=== PATIENT | female | born 1980 | race Two or more races ===

== ENCOUNTER 2018-09-04 14:35 | Emergency (ER) | payer OTHER ==
[2018-09-04 14:43] VITALS: BP 153/80; PULSE 85; TEMP 98.5; BMI 28.2
[2018-09-04] MEDS ORDERED: SODIUM CHLORIDE 0.9% 500 ML INFUS.BAG IV ONE (15:27)
--- NOTE | 2018-09-04 15:32 | PDOC ---
History of Present Illness - General Chief Complaint: Diarrhea Stated Complaint: DIARRHEA Time Seen by Provider: 09/04/18 15:15 - History of Present Illness Initial Comments: Kiara Simpson is a 38yo woman with a PMH of IBS and borderline HTN (not on meds ) who presents with diarrhea for the past 3 weeks, starting around Thanks. She reports that since she has had 1-2 loose bowel movements every times she eats anything, at least 6-7 times per day total. She went to see her PMD after a few days but was initially told that she had a virus. However, she states that for the first day or two she had a few episodes of vomiting that have since resolved. She has had no vomiting since the first week of her symptoms. Ms Simpson denies any fevers, chills, abdominal pain, current nausea/vomiting, recent travel, change in diet, recent antibiotic use, or sick contacts. Since the diarrhea started, she has been avoiding eating and has lost 10lb. She has never had similar symptoms in the past. She tried an OTC "natural probiotic" given to her by a coworker, though she stated that it made her feel as though she was unable to have a bowel movement followed by explosive BMs. She says that she talked with Dr Mendieta and was told to come to the ED so that he could see her here. Past History - Past Medical History Allergies/Adverse Reactions: Allergies Allergy/AdvReac Type Severity Reaction Status Date / Time fluorescein Allergy Verified 09/04/18 14:39 iodine Allergy Verified 09/04/18 14:39 shellfish derived Allergy Verified 09/04/18 14:39 tree nut Allergy Verified 09/04/18 14:39 COPD: No GI Disorders: Yes (IBS) - Surgical History Cholecystectomy: Yes - Immunization History Immunization Up to Date: Yes - Suicide/Smoking/Psychosocial Hx Smoking History: Current every day smoker Number of Cigarettes Smoked Daily: 10 Information on smoking cessation initiated: No Hx Alcohol Use: No Drug/Substance Use Hx: No Review of Systems - Review of Systems Comments:: General: No fevers, no chills, no weight or appetite change, no malaise HEENT: No changes in vision, no changes in hearing, no congestion, no sore throat CV: No chest pain, no palpitations, no LE edema Pulm: No SOB, no cough, no wheezing GI: See HPI : No frequency, no urgency, no dysuria Musc: No back pain, no joint swelling, no recent injury Skin: No rash, no lesions, no erythema Endo: No excessive thirst, no heat/cold intolerance Heme: No unusual bruising or bleeding, no swollen glands Neuro: No syncope, no numbness/tingling, no focal weakness Vasc: No claudication Psych: No recent change in mood, no SI or HI *Physical Exam - Vital Signs Last Vital Signs Temp Pulse Resp BP Pulse Ox 98.5 F 85 18 153/80 100 09/04/18 14:39 09/04/18 14:39 09/04/18 14:39 09/04/18 14:39 09/04/18 14:39 - Physical Exam Comments: General: Comfortable, no acute distress HEENT: PERRL, EOMI, MMM, voice normal, normal neck ROM, no LAD Cards: RRR, no murmur appreciated Pulm: Comfortable on room air, clear to auscultation bilaterally Abd: Soft, nontender, nondistended : No CVA tenderness Ext: Atraumatic. No LE edema. ROM intact. Strength 5/5 and equal bilaterally Vasc: Extremities WWP. Palpable radial and pedal pulses bilaterally Skin: Normal color, no rashes or lesions Neuro: A&Ox3, CN grossly intact, normal speech, motor/sensory grossly intact and symmetric Psych: Mood appropriate to situation Moderate Sedation - Procedure Monitoring Vital Signs: Procedure Monitoring Vital Signs Temperature 98.5 F 09/04/18 14:39 Pulse Rate 85 09/04/18 14:39 Respiratory Rate 18 09/04/18 14:39 Blood Pressure 153/80 09/04/18 14:39 O2 Sat by Pulse Oximetry (%) 100 09/04/18 14:39 ED Treatment Course - LABORATORY CBC & Chemistry Diagram: 09/04/18 16:29 09/04/18 16:29 Medical Decision Making - Medical Decision Making 09/04/18 15:32 Kiara Simpson is a 38yo woman with a PMH of borderline HTN and IBS who presents with 3 weeks of frequent diarrhea, now with fear of eating and weight loss of 10lb. - Could be related to previously diagnosed IBS. No abdominal pain suggesting pancreatitis, but could be due to malabsorption, viral or bacterial enteritis or colitis, cdiff. - With frequent diarrhea, could have electrolyte abnormalities - CBC, CMP, mag, phos, lipase, amylase, UA, Upreg ordered - May obtain stool culture, cdiff, O&P. - Plan to call GI 09/04/18 17:19 - Following discussion with Dr Romero, ordered stool tests - Overhead page to Dr Mendieta 09/04/18 18:02 - Call placed to Dr Mcneil 17:45 - Discussed with pt that she may need to follow up as an outpatient. She understands and states that this was her plan initially; she was told that she might get seen sooner if she presented to the ED and had GI consulted. She is happy to be discharged home. - Labs reviewed, unremarkable - UA and stool tests pending - Will likely d/c home with GI followup 09/04/18 18:29 - Discussed with Ms Simpson, will discharge home. She plans to call tomorrow to follow up with GI. - UA to be sent; will be called if any significant abnormalities. - Has been unable to provide a stool sample. Will take a sample cup home. Discussed with Dr Romero. Nai Macario PGY1 *DC/Admit/Observation/Transfer Diagnosis at time of Disposition: Diarrhea - Discharge Dispostion Disposition: HOME Decision to Admit order: No - Referrals Referrals: Oni Mcneil MD [Staff Physician] - Nelson Stoddard MD [Staff Physician] - Jose Mendieta DO [Staff Physician] - - Patient Instructions Printed Discharge Instructions: DI for Diarrhea and Traveler's Diarrhea -- Adult Additional Instructions: Discharge Instructions: You were seen in the emergency department for diarrhea for several weeks. You had blood tests, which were all normal, as well as several stool tests. The stool test results will not be completed for several days, but you will be called if any of them are positive and need treatment. Home Care: Make sure you are staying hydrated at home. If you are unable to eat regular meals, try to eat multiple snacks in a day. Eat easy to digest, bland, low fat foods. Try to stay away from dairy products. Avoid foods that worsen your symptoms. You should not take any anti-diarrhea medications until your stool tests have been finalized as they can worsen symptoms with certain bacterial infections. Follow Up: You have been referred to Dr Mcneil in GI. Try to make an appointment to see him within the next week. It is recommended that you call tomorrow to schedule an appointment. Seek immediate medical care if you develop abdominal pain, blood in your stool, black tar-like stools, severe abdominal pain, or are unable to keep down any food or drink. - Post Discharge Activity
--- NOTE | 2018-09-04 16:23 | PDOC ---
Attending Attestation - HPI HPI: 09/04/18 17:37 The patient is a 38 year old female with a past medical history of IBS, H pylori and gastritis and borderline HTN here today for evaluation of multiple episodes of mucus-brown and nonbloody diarrhea x 3 weeks. The patient reports that her diarrhea has been going since Thanksgiving after eating a chocolate pie and has been afraid to eat. She reports a 10 lbs weight loss. She also notes previously having h pylori and gastritis. Patient denies headache, lightheadedness. Denies fever, chills. Denies chest pain, shortness of breath. Denies nausea, vomiting, abdominal pain. Denies lower extremity edema. Denies urinary symptoms. Denies travel or suspicious food intake. Allergies: fluorescein, iodine, shellfish derived, tree nuts PCP: none reported - Physicial Exam PE: 09/04/18 17:37 NAD, well appearing, MMM, nl conjunctiva, anicteric; neck supple. lungs clear, RRR, abdomen soft nontender. FIERRO x4, no focal neuro deficits. No peripheral edema. normal color for ethnicity, WWP. - Medical Decision Making Dr. Mendieta paged at 5:20, awaiting call back. Dr. Mcniel paged at 5:40, awaiting call back. <Wilmer Hernandez - Last Filed: 09/04/18 18:20> - Resident Resident Name: AmirahNai - ED Attending Attestation I have performed the following: I have examined & evaluated the patient, The case was reviewed & discussed with the resident, I agree w/resident's findings & plan - Medical Decision Making See HPI for details Vital signs reviewed, wnl. Prior notes reviewed, including admissions, discharges and consultations. laboratory results and imaging reviewed, basic labs and lytes wnl, normal LFTs/ lipase. reassuring, no abdominal sx currently. no AP/tenderness. no diarrhea here. ED course: stool cultures/wbcs, O/P, c diff given chronic diarrhea offered to take sample, unable to. given cup and follow up with GI for further eval dietary modifications provided, diary to keep track of food and further eval by outpatient GI. attempts to call Dr. Mendieta and Dr Mcneil, left message and unable to reach. those referrals to be given she is reasonable, eager for discharge and doubt significant abdominal pathology with reassuring exam and labs. Dispo: I discussed the physical exam findings, ancillary test results and final diagnoses with the patient. I answered all of the patient's questions. The patient was satisfied with the care received and felt comfortable with the discharge plan and treatment plan. The patient will return to the Emergency Department with any new, persistent or worsening symptoms. GI referrals given 09/04/18 18:14 09/04/18 18:25 <Anastasia Romero - Last Filed: 09/04/18 18:26>
[2018-09-04 17:17] LABS: BASO % 0.7 % (0-2.0); EOS % 1.3 % (0-4.5); HEMATOCRIT 34.5 % (32.4-45.2); HEMOGLOBIN 12.1 GM/dL (10.7-15.3); LYMPH % 34.6 % (8-40); MCH 31.8 pg (25.7-33.7); MEAN CELL VOLUME 90.7 fl (80-96); MEAN PLT VOLUME 8.1 fl (7.5-11.1); MONO % 7.4 % (3.8-10.2); PLATELET COUNT 304 K/MM3 (134-434); RDW 13.5 % (11.6-15.6); WHITE BLOOD COUNT 7.9 K/mm3 (4.0-10.0)
[2018-09-04 17:28] LABS: ALBUMIN 3.7 g/dl (3.4-5.0); ALK PHOS 54 U/L (45-117); AMYLASE 54 U/L (25-115); ANION GAP 9 MMOL/L (8-16); BILIRUBIN,TOTAL 0.2 mg/dL (0.2-1); BLOOD UREA NITROGEN 14 mg/dL (7-18); CALCIUM 8.7 mg/dL (8.5-10.1); CHLORIDE 106 mmol/L (98-107); CO2 25 mmol/L (21-32); CREATININE 0.9 mg/dL (0.55-1.3); GLUCOSE,RANDOM 84 mg/dL (74-106); LIPASE 151 U/L (73-393); MAGNESIUM 2.1 mg/dL (1.8-2.4); SGOT/AST 15 U/L (15-37); SGPT/ALT 16 U/L (13-61); SODIUM 141 mmol/L (136-145); TOT PROT 7.2 g/dl (6.4-8.2)
[2018-09-04 19:56] LABS: URINE APPEARANCE CLEAR; URINE BILIRUBIN NEGATIVE (<2.0 mg/dL); URINE COLOR YELLOW; URINE GLUCOSE (UA) NEGATIVE (NEGATIVE); URINE KETONE NEGATIVE (NEGATIVE); URINE LEUK ESTERASE NEGATIVE (NEGATIVE); URINE NITRITE NEGATIVE (NEGATIVE); URINE PROTEIN NEGATIVE (NEGATIVE); URINE UROBILINOGEN NEGATIVE mg/dL (0.2-1.0)
[2018-09-04 20:08] LABS: EPI CELLS RARE /HPF (FEW); URINE BACTERIA RARE /hpf (NONE SEEN); URINE HYALINE CAST 1 /lpf; URINE MUCUS RARE
[2018-09-04 20:27] LABS: HCG,QUALITATIVE URINE Negative
== END 2018-09-04 18:57 | disposition home or self-care (01) ==
LOC: JER 14:35
PROC: 3E0337Z Introduction of Electrolytic and Water Balance Substance into Peripheral Vein, Percutaneous Approach (ICD-10-PCS; principal; 2018-09-04)
DX: R19.7 Diarrhea, unspecified (principal); I10 Essential (primary) hypertension
CPT/HCPCS: 36415; 80053; 81003; 81015; 82150; 83690; 83735; 84100; 84703; 85025; 99282-25